=== PATIENT | male | born 1985 | race American Indian/Alaskan Native ===

== ENCOUNTER 2018-11-29 09:32 | Emergency (ER) | payer OTHER ==
[2018-11-29 09:40] VITALS: BP 121/82
[2018-11-29] MEDS ORDERED: NORCO 5/325 ONE (09:53)
[2018-11-29] MEDS ORDERED: IBUPROFEN ONE (09:53)
[2018-11-29] MEDS ORDERED: ZOFRAN ODT ONE (09:54)
[2018-11-29] MEDS ORDERED: IBUPROFEN PO ONE (10:01)
[2018-11-29] MEDS ORDERED: NORCO 5/325 PO ONE (10:01)
[2018-11-29] MEDS ORDERED: ZOFRAN ODT PO ONE (10:01)
--- NOTE | 2018-11-29 11:05 | XRay Report ---
PROCEDURE: XR ANKLE 3+V RT, XR TIBIA FIBULA 2V RT, XR FOOT 3+V RT TECHNIQUE: Right tibia and fibula radiographs, 2 views. Right ankle radiograph, 3 views. Right foot r adiographs, 3 views. HISTORY: right ankle pain s/p fall COMPARISONS: None currently available. FINDINGS: RIGHT TIBIA AND FIBULA: Distal tibia and fibular fractures discussed below. No other tibia and fibular fractures. There is no acute dislocation. There is no cortical destruction to suggest osteomyelitis. There are no suspicious osseous lesions. There are no radiopaque foreign objects. RIGHT ANKLE: Oblique comminuted fracture of the lateral malleolus above the level of the ankle mortise. Mild 4.3 m m displacement identified. Possible small spiral component. Transverse oblique fracture of the medial malleolus with 2.9 mm medial displacement of the fragment. Small fracture of the anterior tibia. Small fracture of the posterior tibia Asymmetrical widening and subluxation of the medial ankle mortise. No dislocation. There is no cortical destruction to suggest osteomyelitis. There are no suspicious osseous lesions. There are no radiopaque foreign objects. Soft tissue swelling. Joint effusion. RIGHT FOOT: There is no acute fracture. There is no evidence for healing fracture. Healed fracture deformity of t he 4th metatarsal. There is no acute dislocation. Mild hallux valgus. There is no cortical destruction to suggest osteomyelitis. There are no suspicious osseous lesions. There are no radiopaque foreign objects. IMPRESSION: * Trauma malleolus fracture and also small fracture of the anterior tibia. * Asymmetrical widening and subluxation at the medial ankle mortise. This document is electronically signed by Flavio Martinez MD., November 29 2018 11:03:19 AM ET
--- NOTE | 2018-11-29 11:13 | Emergency Department Report ---
ED Extremity Problem HPI - General Chief complaint: Extremity Injury, Lower Stated complaint: FELL FROM STANDING POSITION/LEG PAIN Time Seen by Provider: 11/29/18 10:29 Source: patient Mode of arrival: Wheelchair Limitations: No Limitations - History of Present Illness Initial comments: 33-year-old female with no significant medical history presents to the hospital complaining of right ankle pain after ground-level fall 1 hour prior to arrival. Pain is constant rate of 10/10 in intensity worse with palpation and movement. Patient is unable to bear weight. Denies previous ankle fracture. Severity scale (0 -10): 10 - Related Data Previous Rx's Medication Instructions Recorded Last Taken Type HYDROcodone/APAP 5-325 [Bells 1 each PO Q6HR PRN #20 tablet 11/29/18 Unknown Rx 5/325] Ibuprofen [Motrin] 800 mg PO Q8HR PRN #30 tablet 11/29/18 Unknown Rx Allergies Allergy/AdvReac Type Severity Reaction Status Date / Time No Known Allergies Allergy Unverified 11/29/18 09:35 ED Review of Systems ROS: Stated complaint: FELL FROM STANDING POSITION/LEG PAIN Other details as noted in HPI Comment: All other systems reviewed and negative ED Past Medical Hx - Past Medical History Previous Medical History?: No - Surgical History Past Surgical History?: No - Social History Smoking Status: Current Every Day Smoker Substance Use Type: Alcohol, Cocaine, Marijuana - Medications Home Medications: Home Medications Medication Instructions Recorded Confirmed Last Taken Type HYDROcodone/APAP 5-325 [Bells 1 each PO Q6HR PRN #20 tablet 11/29/18 Unknown Rx 5/325] Ibuprofen [Motrin] 800 mg PO Q8HR PRN #30 tablet 11/29/18 Unknown Rx ED Physical Exam - General Limitations: No Limitations - Other Other exam information: General: No limitations, patient is alert in no acute distress Head exam: Atraumatic, normocephalic Eyes exam: Normal appearance ENT: Moist mucous membrane Neck exam: Normal inspection, full range of motion, no meningismus nontender Respiratory exam: Clear to auscultation bilateral, no wheezes, rales, crackles Cardiovascular: Normal rate and rhythm, normal heart sounds Abdomen: Soft, nondistended, and nontender, with normal bowel sounds, no rebound, or guarding Extremity: Generalized ankle swelling with medial and lateral malleolus pain. 2+ DP pulse. Cap refill is intact. No proximal leg pain or knee pain. Back: Normal Inspection, full range of motion, no tenderness Neurologic: Alert, oriented x3, cranial nerves intact, no motor or sensory deficit Psychiatric: normal affect, normal mood Skin: Warm, dry, intact ED Course Vital Signs 11/29/18 11/29/18 11/29/18 09:37 10:00 10:03 Temperature 98.1 F Pulse Rate 118 H Respiratory 20 16 16 Rate Blood Pressure 121/82 O2 Sat by Pulse 97 Oximetry ED Medical Decision Making - Radiology Data Radiology results: report reviewed PROCEDURE: XR ANKLE 3+V RT, XR TIBIA FIBULA 2V RT, XR FOOT 3+V RT TECHNIQUE: Right tibia and fibula radiographs, 2 views. Right ankle radiograph, 3 views. Right foot radiographs, 3 views. HISTORY: right ankle pain s/p fall COMPARISONS: None currently available. FINDINGS: RIGHT TIBIA AND FIBULA: Distal tibia and fibular fractures discussed below. No other tibia and fibular fractures. There is no acute dislocation. There is no cortical destruction to suggest osteomyelitis. There are no suspicious osseous lesions. There are no radiopaque foreign objects. RIGHT ANKLE: Oblique comminuted fracture of the lateral malleolus above the level of the ankle mortise. Mild 4.3 mm displacement identified. Possible small spiral component. Transverse oblique fracture of the medial malleolus with 2.9 mm medial displacement of the fragment. Small fracture of the anterior tibia. Small fracture of the posterior tibia Asymmetrical widening and subluxation of the medial ankle mortise. No dislocation. There is no cortical destruction to suggest osteomyelitis. There are no suspicious osseous lesions. There are no radiopaque foreign objects. Soft tissue swelling. Joint effusion. RIGHT FOOT: There is no acute fracture. There is no evidence for healing fracture. Healed fracture deformity of the 4th metatarsal. There is no acute dislocation. Mild hallux valgus. There is no cortical destruction to suggest osteomyelitis. There are no suspicious osseous lesions. There are no radiopaque foreign objects. IMPRESSION: * Trauma malleolus fracture and also small fracture of the anterior tibia. * Asymmetrical widening and subluxation at the medial ankle mortise. - Medical Decision Making posterior and and u shaped splint placed crutches Ortho f/u with Dr Tabor - Differential Diagnosis fracture, contusion, sprain Critical Care Time: No Critical care attestation.: If time is entered above; I have spent that time in minutes in the direct care of this critically ill patient, excluding procedure time. ED Disposition Clinical Impression: Ankle fracture, right Disposition: [id number] TO HOME OR SELFCARE Is pt being admited?: No Does the pt Need Aspirin: No Condition: Stable Instructions: Ankle Fracture (ED) Additional Instructions: Take the medication as prescribed. Follow up with your doctor or the clinic/doctor provided. Return if symptoms worsen as indicated by your discharge instructions Prescriptions: Ibuprofen [Motrin] 800 mg PO Q8HR PRN #30 tablet PRN Reason: Pain, Moderate (4-6) HYDROcodone/APAP 5-325 [Bells 5/325] 1 each PO Q6HR PRN #20 tablet PRN Reason: Pain Referrals: LAWRENCE TABOR MD [Staff Physician] - 3-5 Days
== END 2018-11-29 12:14 | disposition home or self-care (01) ==
LOC: ED 09:32
DX: S82.891A Other fracture of right lower leg, initial encounter for closed fracture (principal); W18.30XA Fall on same level, unspecified, initial encounter; Y93.89 Activity, other specified; Y92.89 Other specified places as the place of occurrence of the external cause; Y99.8 Other external cause status
CPT/HCPCS: Q0162